=== PATIENT | male | born 1960 | race Caucasian/White ===

== ENCOUNTER 2024-02-28 06:13 | Emergency (ER) | payer MEDICARE, OTHER ==
[~2024-02-28] VITALS: Ht 170.2 cm; Wt 50.9 kg
[~2024-02-28 06:13] MED LIST: IPRA3AMP24 NEB; PRED-554 PO
[2024-02-28 06:41] VITALS: TEMP 98.1
[2024-02-28 06:57] VITALS: BP 139/92
[2024-02-28] MEDS ORDERED: 0.9% SODIUM CHLORIDE 5 ML NEB SOLUTION NEB ONE (07:02)
[2024-02-28] MEDS: IPRATROPIUM BROMIDE 0.5 MG/2.5 ML NEB SOLUTION NEB ONE (07:03)
[2024-02-28] MEDS: ALBUTEROL SULFATE 2.5 MG/0.5 ML 5 ML NEB SOLUTION NEB ONE (07:03)
[2024-02-28 07:05] VITALS: PULSE 102; RESP 20; O2SAT 97
[2024-02-28] MEDS: AZITHROMYCIN 500 MG TABLET PO ONE (07:10)
[2024-02-28] MEDS: PredniSONE 20 MG TABLET PO ONE (07:11)
[2024-02-28 07:16] LABS: BASOPHILS % (AUTO) 0.1 % (0.0-2.0); EOSINOPHILS % (AUTO) 0.5 % (1.0-6.0); HEMATOCRIT 34.8 % (41-53); HEMOGLOBIN 11.5 g/dL (13.5-17.5); LYMPHOCYTES # (AUTO) 1.6 K/uL (1.0-4.8); LYMPHOCYTES % (AUTO) 15.5 % (22.0-44.0); MEAN CORPUSCULAR HEMOGLOBIN 31.8 pg (26.0-34.0); MEAN CORPUSCULAR HGB CONC 32.9 G/dL (31.0-37.0); MEAN CORPUSCULAR VOLUME 97 fL (80-100); MONOCYTES % (AUTO) 9.4 % (2.0-9.0); NEUTROPHILS # (AUTO) 7.6 K/uL (1.8-7.7); NEUTROPHILS % (AUTO) 74.5 % (40.0-70.0); PLATELET COUNT (AUTO) 234 K/uL (150-450); RED BLOOD CELL COUNT(AUTO) 3.61 MIL/uL (4.50-5.90); RED CELL DISTRIBUTION WIDTH 15.4 % (11.5-14.5); WHITE BLOOD COUNT (AUTO) 10.2 K/uL (4.5-11.0)
[2024-02-28 07:25] LABS: ANION GAP 3 mmol/L (8-16); CALCIUM, TOTAL 8.2 mg/dL (8.8-10.5); CARBON DIOXIDE 35 mmol/L (22-29); CHLORIDE 107 mmol/L (98-107); CREATININE 0.57 mg/dL (0.60-1.30); GLOMERULAR FILTR. RATE CALC > 60 mL/min (>60); GLUCOSE,RANDOM 78 mg/dL (70-110); POTASSIUM 3.4 mmol/L (3.5-5.1); SODIUM SERUM 145 mmol/L (136-145); UREA NITROGEN, BLOOD 9 mg/dL (7-18)
[2024-02-28] MEDS: OXYGEN THERAPY IH SCH (07:26)
[2024-02-28 07:30] VITALS: PULSE 121; RESP 20; O2SAT 99
[2024-02-28 07:33] LABS: TROPONIN I-HIGH SENSITIVITY 8 ng/L (<76)
[2024-02-28] MEDS ORDERED: AZIT250T9 PO (08:19)
[2024-02-28] MEDS ORDERED: ALBU2.5V39 NEB (08:19)
[2024-02-28] MEDS ORDERED: ALBU18HF12 IH (08:19)
[2024-02-28] MEDS ORDERED: FLUT16SP NASAL (08:19)
[2024-02-28] MEDS ORDERED: FLUT1BLS19 IH (08:19)
[2024-02-28] MEDS ORDERED: UMEC62.5 IH (08:19)
== END 2024-02-28 11:13 | disposition home or self-care (01) ==
LOC: EMS 06:13
DX: J44.1 Chronic obstructive pulmonary disease with (acute) exacerbation (principal); F15.10 Other stimulant abuse, uncomplicated; F31.9 Bipolar disorder, unspecified; F17.210 Nicotine dependence, cigarettes, uncomplicated; Z79.52 Long term (current) use of systemic steroids
CPT/HCPCS: 99285; 71045; 80048; 84484; 85025; 36415; 94640; 93005; J0456; J7512